=== PATIENT | female | born 1995 | race Caucasian/White ===

== ENCOUNTER 2017-10-02 10:05 | Inpatient (IN) | payer MEDICAID ==
[2017-10-02] MEDS ORDERED: IBUPROFEN 600 MG TAB PO (10:30)
[2017-10-02] MEDS ORDERED: OXYTOCIN 30 UNITS/LR 500 ML IV ×2 (10:30→12:30)
[2017-10-02] MEDS ORDERED: CARBOPROST 250 MCG INJ IM (10:30)
[2017-10-02] MEDS ORDERED: METHYLERGONOVINE 0.2 MG INJ IM (10:30)
[2017-10-02] MEDS ORDERED: LIDOCAINE 1% (MPF) 30 ML INJ INJ (10:30)
[2017-10-02] MEDS ORDERED: MISOPROSTOL 200 MCG TAB PR (10:30)
[2017-10-02] MEDS: LACTATED RINGER'S 1,000 ML IV ×3 (10:58→17:39)
[2017-10-02 11:10] LABS: ADD MAN DIFF? NO
[2017-10-02 11:23] LABS: BASOPHILS % 0.4 % (0.0-2.0); EOSINOPHILS # 0.1 10^3/ul (0.0-0.5); EOSINOPHILS % 1.5 % (0.0-7.0); HEMATOCRIT 35.7 % (37.0-47.0); HEMOGLOBIN 11.8 g/dl (12.0-16.0); LYMPHOCYTES # 2.1 10^3/ul (0.8-2.9); LYMPHOCYTES % 24.9 % (15.0-51.0); MEAN CORPUSCULAR HEMOGLOBIN 27.1 pg (29.0-33.0); MEAN CORPUSCULAR HGB CONC 33.1 g/dl (32.0-37.0); MEAN CORPUSCULAR VOLUME 82.1 fl (82.0-101.0); MEAN PLATELET VOLUME 10.8 fl (7.4-10.4); MONOCYTE # 0.7 10^3/ul (0.3-0.9); MONOCYTES % 8.2 % (0.0-11.0); NEUTROPHIL # 5.5 10^3/ul (1.6-7.5); NEUTROPHILS % 64.4 % (39.0-77.0); PLATELET COUNT 254 10^3/UL (140-415); RED BLOOD COUNT 4.35 10^6/ul (4.20-5.40)
[2017-10-02 11:23] LABS: WHITE BLOOD COUNT 8.5 10^3/ul (4.8-10.8)
[2017-10-02 11:31] LABS: INR 0.86; PROTIME 11.8 Sec (11.9-14.9); PT RATIO 0.9
[2017-10-02 11:32] LABS: PARTIAL THROMBOPLASTIN TIME 26.4 Sec (25.0-35.0)
[2017-10-02 13:28] LABS: HEPATITIS B SURFACE ANTIGEN NEGATIVE (NEGATIVE)
[2017-10-02] MEDS: DINOPROSTONE 10 MG VAG SUPP VAG (14:03)
[2017-10-02 17:03] LABS: RAPID PLASMA REAGIN NONREACTIVE (NR)
[2017-10-02] MEDS: BUTORPHANOL 2 MG INJ IV (19:31)
[2017-10-02] MEDS ORDERED: FENTAnyl 2MCG/ML-ROPIV 0.2% 100 ML (22:50)
[2017-10-02] MEDS ORDERED: ONDANSETRON 4 MG INJ IV (23:00)
[2017-10-02] MEDS ORDERED: NALOXONE (0.4 MG/ML) INJ IV (23:00)
[2017-10-02] MEDS ORDERED: DIPHENHYDRAMINE 50 MG INJ IV (23:00)
[2017-10-03] MEDS: FENTAnyl 2MCG/ML-ROPIV 0.2% 100 ML BAG EPI ×2 (01:09→05:22)
[2017-10-03 01:57] LABS: AMPHETAMINE/METHAMPHETAMINE Negative (NEGATIVE); BARBITURATES Negative (NEGATIVE); BENZODIAZEPINES Negative (NEGATIVE); CANNABINOIDS Negative (NEGATIVE); COCAINE Negative (NEGATIVE); OPIATES Negative (NEGATIVE)
[2017-10-03] MEDS: LACTATED RINGER'S 1,000 ML IV ×2 (04:25→04:26)
[2017-10-03] MEDS: MINERAL OIL LIGHT 10 ML VIAL TOP (07:00)
[2017-10-03] MEDS: OXYTOCIN 30 UNITS/LR 500 ML IV ×2 (07:04→07:05)
[2017-10-03] MEDS ORDERED: ZOLPIDEM 5 MG TAB PO (08:30)
[2017-10-03] MEDS ORDERED: OXYCODONE/ASPIRIN (4.88/325) TAB PO ×2 (08:30)
[2017-10-03] MEDS ORDERED: OXYTOCIN 30 UNITS/LR 500 ML IV (08:30)
[2017-10-03] MEDS ORDERED: MISOPROSTOL 200 MCG TAB PR (08:30)
[2017-10-03] MEDS ORDERED: METHYLERGONOVINE 0.2 MG INJ IM (08:30)
[2017-10-03] MEDS ORDERED: CARBOPROST 250 MCG INJ IM (08:30)
[2017-10-03] MEDS: LANOLIN 7 GM TUBE TOP (10:36)
[2017-10-03] MEDS: SENNA/DOCUSATE NA (8.6MG/50MG) TAB PO ×2 (10:37→20:54)
[2017-10-03] MEDS: BENZOCAINE 20% 56 ML SPRAY TOP (10:37)
[2017-10-03] MEDS: WITCH HAZEL/GLYCERIN PAD PR (10:37)
[2017-10-03] MEDS: IBUPROFEN 600 MG TAB PO ×2 (12:18→18:08)
[2017-10-04] MEDS: IBUPROFEN 600 MG TAB PO ×5 (00:17→23:21)
[2017-10-04 08:26] LABS: ADD MAN DIFF? NO
[2017-10-04 08:35] LABS: BASOPHILS % 0.2 % (0.0-2.0); EOSINOPHILS # 0.1 10^3/ul (0.0-0.5); EOSINOPHILS % 1.3 % (0.0-7.0); HEMOGLOBIN 9.1 g/dl (12.0-16.0); LYMPHOCYTES % 19.5 % (15.0-51.0); MEAN CORPUSCULAR HEMOGLOBIN 27.2 pg (29.0-33.0); MEAN CORPUSCULAR HGB CONC 32.5 g/dl (32.0-37.0); MEAN CORPUSCULAR VOLUME 83.8 fl (82.0-101.0); MEAN PLATELET VOLUME 10.4 fl (7.4-10.4); MONOCYTE # 0.6 10^3/ul (0.3-0.9); MONOCYTES % 6.3 % (0.0-11.0); NEUTROPHIL # 7.4 10^3/ul (1.6-7.5); NEUTROPHILS % 72.2 % (39.0-77.0); PLATELET COUNT 177 10^3/UL (140-415); RED BLOOD COUNT 3.34 10^6/ul (4.20-5.40); RED CELL DISTRIBUTION WIDTH 14.4 % (11.5-14.5)
[2017-10-04 08:35] LABS: WHITE BLOOD COUNT 10.2 10^3/ul (4.8-10.8)
[2017-10-04] MEDS: SENNA/DOCUSATE NA (8.6MG/50MG) TAB PO ×2 (09:40→21:55)
[2017-10-05] MEDS: IBUPROFEN 600 MG TAB PO ×2 (06:08→11:28)
[2017-10-05] MEDS: DIPHTH/TET/ACEL PERTUSS (ADULT) 0.5 ML VIAL IM* (09:00)
[2017-10-05] MEDS: SENNA/DOCUSATE NA (8.6MG/50MG) TAB PO (11:28)
== END 2017-10-05 13:25 | disposition home or self-care (01) | DRG 775 ==
LOC: PP1 10-03 08:48 → L-D 10:05
PROVIDERS: Obstetrics & Gynecology
PROC: 3E0P7VZ Introduction of Hormone into Female Reproductive, Via Natural or Artificial Opening (ICD-10-PCS; 2017-10-02)
PROC: 10E0XZZ Delivery of Products of Conception, External Approach (ICD-10-PCS; principal; 2017-10-03)
PROC: 0UQMXZZ Repair Vulva, External Approach (ICD-10-PCS; 2017-10-03)
DX: O48.0 Post-term pregnancy (principal); O69.81X0 Labor and delivery complicated by cord around neck, without compression, not applicable or unspecified; O70.0 First degree perineal laceration during delivery; Z37.0 Single live birth; Z3A.40 40 weeks gestation of pregnancy
CPT/HCPCS: 62319; 76815; 80307; 85025; 85610; 85730; 86592; 86850; 86900; 86901; 87340; 99464